=== PATIENT | female | born 1955 | race Caucasian/White ===

== ENCOUNTER 2020-12-11 10:44 | Outpatient (CLI) | payer BC ==
[~2020-12-11 10:44] MED LIST: ALOE VERA JUICE PO; ASPI-963 PO; BOTOX IM; BUPR-86 PO; CARI350T PO; CETI10TA76 PO; CHOL200052 PO; CLINDAMYCIN TP; ESOM40CA PO; FISH OIL PO; FLOVENT INH; GABA100C PO; HYDR-3248 PO; HYDR-3342 PO; HYDR-826 PO; HYDR200T72 PO; LEVO25TA2 PO; LORA-445 PO; LORA-446 PO; RANI300T PO; SERT100T PO; SUCR1TAB33 PO; TACR100O2 TP; UBID150C PO; VITAMIN C PO; VITAMIN E PO; [UNRECOGNIZED DRUG - OTHER] TP
== END 2020-12-11 23:59 | disposition home or self-care (01) ==
LOC: RAD 10:44
PROVIDERS: ATTEND Internal Medicine
DX: J44.1 Chronic obstructive pulmonary disease with (acute) exacerbation (principal); H57.10 Ocular pain, unspecified eye; W06.XXXA Fall from bed, initial encounter
CPT/HCPCS: 70150; 70200; 71046